=== PATIENT | female | born 1985 | race Caucasian/White ===

== ENCOUNTER → 2019-03-05 | Outpatient (CLI) | payer OTHER ==
--- NOTE | 2019-03-05 10:41 | RAD ---
US PELVIS W/TV History: Irregular menstrual cycle, elevated testosterone Comparison: None. Findings: Multiple transabdominal sonographic images of pelvis are submitted. Uterus measured 9.9 x 3.9 x 5.5 cm. Endometrium measured 1.10 m in thickness. Ovaries are not well visualized. Transvaginal ultrasound: Multiple transvaginal sonographic images of the pelvis are submitted. There is very minimal free fluid in the cul-de-sac. Endometrium measured 1.1 cm in thickness. There is focus of echogenicity with associated shadowing of the posterior uterus in the myometrium near the serosal surface. This measures about 1.4 x 0.9 x 1.5 cm in size, not associated with significant hypervascularity on color Doppler imaging. Right ovary measured 3.7 x 2.4 x 3.2 cm, normal low resistance vascularity. There is a focus of hypoechogenicity with some internal echoes and peripheral vascularity of the right ovary up to 2.4 x 2.1 x 2.3 cm in size. Left ovary measured 2.6 x 2 x 2.9 cm, normal low resistance vascularity. Impression: 1. There is small likely calcified mass of the posterior uterus which may be a small fibroid. 2. There is what likely represents a somewhat complex cyst of the right ovary up to 2.4 cm, could be followed in about 2-3 months given somewhat complex features. 3. There is minimal nonspecific free fluid in the cul-de-sac. Electronically signed by: Harjeet Torres MD (03/05/2019 10:38 AM) [id number]
== END | disposition home or self-care (01) ==
LOC: US 08:46
PROVIDERS: ATTEND Obstetrics & Gynecology
DX: N92.6 Irregular menstruation, unspecified (principal); L68.0 Hirsutism; R89.1 Abnormal level of hormones in specimens from other organs, systems and tissues
CPT/HCPCS: 76830; 76856

== ENCOUNTER → 2019-06-02 | Outpatient (CLI) | payer OTHER ==
--- NOTE | 2019-06-02 16:24 | RAD ---
Examination: US PELVIS W/TV History: Fibroid uterus Comparison/Correlation: 03/05/2019 pelvic ultrasound exam Findings: Transabdominal and transvaginal pelvic ultrasound was performed. Uterus measures 9.3 cm x 5.7 x 4.1 cm. Endometrial thickness is 0.9 cm. Calcified fibroid at the posterior uterine body again identified measuring up to 1.4 cm diameter without change. Uterine cervix has a nabothian cyst. Right ovary measures 3.7 cm x 2.5 cm x 2.6. Left ovary measures 2.7 cm x 2.0 x 2.1 cm. Multiple right ovarian follicles are present. There is a septated follicle measuring up to 1.8 cm x 2 cm x 1.6. Small left ovarian follicles are present. Impression: Uterine fibroid again seen. Ovarian follicles are present and probably facility. A follicle within septation is present involving the right ovary. No aggressive features. Previously evident heterogeneous right ovarian complex follicle is no longer seen. Electronically signed by: Zaki Garber MD (06/02/2019 4:21 PM) [facility]
== END | disposition home or self-care (01) ==
LOC: US 12:42
PROVIDERS: ATTEND Nurse Practitioner Women's Health
DX: N88.8 Other specified noninflammatory disorders of cervix uteri (principal); D25.9 Leiomyoma of uterus, unspecified; N83.9 Noninflammatory disorder of ovary, fallopian tube and broad ligament, unspecified
CPT/HCPCS: 76830; 76856

== ENCOUNTER 2019-07-29 10:11 | Emergency (ER) | payer OTHER ==
[~2019-07-29] VITALS: Ht 160 cm; Wt 65.1 kg
[2019-07-29] MEDS ORDERED: IV NORMAL SALINE 1,000ML 1,000 ML IV ONE ×2 (10:45→14:30)
[2019-07-29] MEDS ORDERED: ONDANSETRON PF 4 MG/2 ML VIAL. IVP ONE (10:45)
--- NOTE | 2019-07-29 11:11 | PHYS DOC ---
Past History Past Medical History: Other Additional Past Medical Histor: hoshimoto's; acne Past Surgical History: Appendectomy, Other Additional Past Surgical Histo: vein in leg fixed Alcohol Use: None Adult General Chief Complaint Chief Complaint: PAIN ON URINATION [facility] HPI 33-year-old female presents with concern for UTI. The patient has had lower abdominal pain and days. She tells me these are the types of symptoms she gets with UTIs. She doesn't get dysuria. She does believe she had a fever of 101 yesterday. She vomited a few times last night but none today. She has also had nausea and vomiting with previous UTIs. She denies cough, chest pain, diarrhea, or constipation. She been eating and drinking normally up until last night when she was vomiting. Review of Systems Review of Systems Constitutional: Fever[] Eyes: Denies change in visual acuity, redness, or eye pain [] HENT: Denies nasal congestion or sore throat [] Respiratory: Denies cough or shortness of breath [] Cardiovascular: No additional information not addressed in HPI [] GI: Lower abdominal pain, nausea, vomiting. Denies bloody stools or diarrhea [] : Denies dysuria or hematuria [] Musculoskeletal: Denies back pain or joint pain [] Integument: Denies rash or skin lesions [] Neurologic: Denies headache, focal weakness or sensory changes [] Endocrine: Denies polyuria or polydipsia [] All other systems were reviewed and found to be within normal limits, except as documented in this note. Current Medications Current Medications Current Medications Medications (Trade) Dose Ordered Sig/[facility] Start Time Stop Time Status Last Admin Dose Admin Ondansetron HCl (Zofran) 4 mg 1X ONCE 07/29/19 10:45 07/29/19 10:46 DC Sodium Chloride 1,000 ml @ 1,000 mls/hr 1X ONCE 07/29/19 10:45 07/29/19 11:44 Allergies Allergies Allergies Coded Allergies Type Severity Reaction Last Updated Verified No Known Drug Allergies 07/29/19 No Physical Exam Physical Exam Constitutional: Well developed, well nourished, no acute distress, non-toxic appearance. [] HENT: Normocephalic, atraumatic, bilateral external ears normal, oropharynx moist, no oral exudates, nose normal. [] Eyes: PERRLA, EOMI, conjunctiva normal, no discharge. [] Neck: Normal range of motion, no tenderness, supple, no stridor. [] Cardiovascular: Heart rate regular rhythm, no murmur [] Lungs & Thorax: Bilateral breath sounds clear to auscultation [] Abdomen: Bowel sounds normal, soft, no tenderness, no masses, no pulsatile masses. [] Skin: Warm, dry, no erythema, no rash. [] Back: No tenderness, no CVA tenderness. [] Extremities: No tenderness, no cyanosis, no clubbing, ROM intact, no edema. [] Neurologic: Alert and oriented X 3, normal motor function, normal sensory function, no focal deficits noted. [] Psychologic: Affect normal, judgement normal, mood tearful. [] Current Patient Data Vital Signs Vital Signs Date Time Temp Pulse Resp B/P (MAP) Pulse Ox O2 Delivery O2 Flow Rate FiO2 07/29/19 10:17 99.9 124 18 128/80 (96) 98 Room Air Lab Results Laboratory Tests Test 07/29/19 10:36 POC Urine HCG, Qualitative hcg negative (Negative) EKG EKG [] Radiology/Procedures Radiology/Procedures [] Impressions: CT ABD PELV W/ IV CONTRST ONLY Indication: Left lower quadrant pain. Left flank pain. Exposure: One or more of the following individualized dose reduction techniques were utilized for this examination: 1. Automated exposure control 2. Adjustment of the mA and/or kV according to patient size 3. Use of iterative reconstruction technique. Technique: Intravenous contrast was given. No oral contrast per request. Comparison: None FINDINGS: Lung bases are clear. Liver unremarkable. Spleen unremarkable. Pancreas unremarkable. No evidence of adrenal mass. Kidneys demonstrate symmetric enhancement without hydronephrosis or focal mass. No calcified gallstone. Aorta is nonaneurysmal. No significant pathologic lymph node enlargement is identified. Stomach is not distended. No significant small bowel distention. No evidence of acute colitis. The appendix is not clearly visualized. No significant ascites or pneumoperitoneum. Urinary bladder appears unremarkable. Small focus of coarse left uterine calcifications may be due to a fibroid. Small hypodense foci within the adnexa suspect ovarian cysts or follicles measuring up to 18 mm in size. Vertebral body height and alignment are intact. No evidence of acute fracture or aggressive bone destruction. IMPRESSION: 1. No evidence of acute abnormality in the abdomen or pelvis. 2. Small focus of uterine calcifications, most likely a uterine fibroid. 3. Small low-density foci within the adnexa, most likely small ovarian cysts or follicles. Largest on the left measures 18 mm. Electronically signed by: Mariposa Gee MD (07/29/2019 1:33 PM) [id number] DICTATED AND SIGNED BY: MARIPOSA GEE MD DATE: 07/29/19 2452 CC: AUGUSTINA VIVEROS DO; AMENA MEMBRENO ~ Course & Med Decision Making Course & Med Decision Making Pertinent Labs and Imaging studies reviewed. (See chart for details) Patient's labs are unremarkable. Her urinalysis is negative for infection. I went and did a CT of the abdomen and pelvis due to her discomfort. It is essentially unremarkable. See official report for more details. I will put the patient seems to be just coming down with a viral gastritis. I will discharge her with Zofran prescription and have advised supportive care such as ample fluids and rest. She is stable for discharge at this time [] Dragon Disclaimer Dragon Disclaimer This electronic medical record was generated, in whole or in part, using a voice recognition dictation system. Departure Departure: Impression: Primary Impression: Abdominal pain Additional Impression: Viral gastritis Disposition: HOME/RESIDENCE PRIOR TO ADM Condition: STABLE Referrals: AMENA MEMBRENO (PCP) Patient Instructions: Abdominal Pain, Women, Nausea and Vomiting, [id number] Script[facility] Ondansetron (ONDANSETRON ODT) 4 Mg Tab.rapdis 1 TAB PO PRN Q6-8HRS PRN for VOMITING, #16 TAB Prov: AUGUSTINA VIVEROS DO 07/29/19 Problem Qualifiers Primary Impression: Abdominal pain Abdominal location: lower abdomen, unspecified Qualified Codes: R10.30 - Lower abdominal pain, unspecified AUGUSTINA VIVEROS DO Jul 29, 2019 11:11
[2019-07-29 11:16] LABS: BACTERIA,URINE FEW /HPF (0-FEW); BILIRUBIN,URINE NEG (NEG); CLARITY,URINE CLOUDY; COLOR,URINE YELLOW; GLUCOSE,URINE NEG (NEG); NITRITE,URINE NEG (NEG); SQUAMOUS EPITHELIAL CELL,UR MANY /LPF; UROBILINOGEN,URINE 0.2 mg/dL (0.2 mg/dL)
[2019-07-29 11:34] LABS: BASO % 0 % (0-3); EOS % 0 % (0-3); HEMATOCRIT 44.9 % (36.0-47.0); HEMOGLOBIN 15.1 g/dL (12.0-15.5); LYMPH # 0.2 x10^3/uL (1.0-4.8); LYMPH % 2 % (24-48); MEAN CORPUSCULAR HEMOGLOBIN 32 pg (25-35); MEAN CORPUSCULAR HGB CONC 34 g/dL (31-37); MEAN CORPUSCULAR VOLUME 94 fL (79-100); MONO # 0.2 x10^3/uL (0.0-1.1); MONO % 2 % (0-9); NEUT % 96 % (31-73); PLATELET COUNT 214 x10^3/uL (140-400); RED BLOOD COUNT 4.75 x10^6/uL (3.50-5.40); RED CELL DISTRIBUTION WIDTH 12.3 % (11.5-14.5); WHITE BLOOD COUNT 9.3 x10^3/uL (4.0-11.0)
[2019-07-29 11:40] LABS: CALCIUM 8.3 mg/dL (8.5-10.1); CREATININE 0.6 mg/dL (0.6-1.0); GFR 116.6
[2019-07-29 11:46] LABS: ALBUMIN 3.7 g/dL (3.4-5.0); ALBUMIN/GLOBULIN RATIO 0.9 (1.0-1.7); TOTAL BILIRUBIN 0.9 mg/dL (0.2-1.0); TOTAL PROTEIN 7.7 g/dL (6.4-8.2)
[2019-07-29 12:16] LABS: INFLUENZA A PATIENT NEGATIVE (NEGATIVE); INFLUENZA B PATIENT NEGATIVE (NEGATIVE)
[2019-07-29] MEDS ORDERED: CONTRAST GIVEN MC PRN (12:45)
[2019-07-29] MEDS ORDERED: IOHEXOL 300 MG/ML 75 ML VIAL. IV ONE (12:45)
--- NOTE | 2019-07-29 13:35 | RAD ---
CT ABD PELV W/ IV CONTRST ONLY Indication: Left lower quadrant pain. Left flank pain. Exposure: One or more of the following individualized dose reduction techniques were utilized for this examination: 1. Automated exposure control 2. Adjustment of the mA and/or kV according to patient size 3. Use of iterative reconstruction technique. Technique: Intravenous contrast was given. No oral contrast per request. Comparison: None FINDINGS: Lung bases are clear. Liver unremarkable. Spleen unremarkable. Pancreas unremarkable. No evidence of adrenal mass. Kidneys demonstrate symmetric enhancement without hydronephrosis or focal mass. No calcified gallstone. Aorta is nonaneurysmal. No significant pathologic lymph node enlargement is identified. Stomach is not distended. No significant small bowel distention. No evidence of acute colitis. The appendix is not clearly visualized. No significant ascites or pneumoperitoneum. Urinary bladder appears unremarkable. Small focus of coarse left uterine calcifications may be due to a fibroid. Small hypodense foci within the adnexa suspect ovarian cysts or follicles measuring up to 18 mm in size. Vertebral body height and alignment are intact. No evidence of acute fracture or aggressive bone destruction. IMPRESSION: 1. No evidence of acute abnormality in the abdomen or pelvis. 2. Small focus of uterine calcifications, most likely a uterine fibroid. 3. Small low-density foci within the adnexa, most likely small ovarian cysts or follicles. Largest on the left measures 18 mm. Electronically signed by: Willis Gee MD (07/29/2019 1:33 PM) [id number]
[2019-07-29] MEDS ORDERED: ONDA4TAB12 PO (14:10)
[2019-07-29] MEDS ORDERED: HYDR-3165 PO (14:20)
[2019-07-29] MEDS ORDERED: MORPHINE SULFATE 2 MG/ML DISP.SYRIN. IV ONE (14:45)
[2019-07-29] MEDS ORDERED: METOCLOPRAMIDE HCL 10 MG/2 ML VIAL. IVP ONE (14:45)
[2019-07-29 15:40] VITALS: BP 118/66
== END 2019-07-29 15:37 | disposition home or self-care (01) ==
LOC: ER 10:11
DX: A08.4 Viral intestinal infection, unspecified (principal); Z90.49 Acquired absence of other specified parts of digestive tract
CPT/HCPCS: 36415; 74177; 80053; 81001; 81025; 85025; 87086; 87804; 96361; 96374; 96375; 99285; J2270; J2405; J2765; Q9967; J7030